=== PATIENT | female | born 1955 | race Caucasian/White ===

== ENCOUNTER 2019-08-29 10:32 | Outpatient (RCR) | payer MEDICARE, SELFPAY | END 2019-11-27 23:59 | disposition home or self-care (01) | LOC: ANHDMC 10:32 | PROVIDERS: PCP Family Medicine; Visit Provider Family Medicine | DX: E11.65 Type 2 diabetes mellitus with hyperglycemia (principal); Z71.89 Other specified counseling | CPT/HCPCS: G0108 ==

== ENCOUNTER → 2019-12-11 09:19 | Outpatient (CLI) | payer MEDICARE, SELFPAY ==
--- NOTE | ~2019-12-11 | US_ITS ---
US soft tissue UE LT 12/11/2019 09:30 Indication: Painful lump left upper extremity Procedure: High-resolution Limited ultrasound of the left upper extremity Comparison: No prior studies for comparison. Findings: There is normal heterogeneous echotexture in the area of palpable concern. No discrete mass identified. Impression: 1: Normal limited soft tissue ultrasound of the left upper extremity in the area of palpable concern. No mass identified. Reviewed, dictated and finalized at location A. LE ASCP CONSULTANT Impression: 1: Normal limited soft tissue ultrasound of the left upper extremity in the are a of palpable concern. No mass identified.
== END ==
PROVIDERS: PCP Family Medicine; Visit Provider Physician Assistant
DX: R22.32 Localized swelling, mass and lump, left upper limb (principal); M79.602 Pain in left arm
CPT/HCPCS: 76882

== ENCOUNTER 2019-12-21 01:33 | Day surgery (SDC) | payer MEDICARE, SELFPAY ==
[2019-12-18 10:09] VITALS: BMI 50.7
[2019-12-21 06:58] VITALS: BP 181/57; PULSE 86; RESP 16; TEMP 36.9; O2SAT 96; BMI 49.5
[2019-12-21] MEDS: LACTATED RINGERS 1,000 ML 150 ML IV CONT (07:17)
[2019-12-21 07:20] LABS: Glucose Point of Care 148 (65-105)
--- NOTE | 2019-12-21 07:26 | WPDANESEPPF ---
Anes - Initial Pre Proc Eval Procedure: Operation Date: 12/21/19 08:00 Proposed Procedures p Screening Colonoscopy - Pedro Pablo Bay MD Date/Time: 12/21/19 07:26 Surgeon: Pedro Pablo Bay MD Pre Op Diagnosis: Neoplasm Screening Patient Data Age: 64 Gender: F Height: 5 ft 4 in Weight: 130.9 kg Last Vital Signs Temp 36.9 C 12/21/19 06:58 Pulse 86 12/21/19 06:58 Resp 16 12/21/19 06:58 BP 181/57 H 12/21/19 06:58 Pulse Ox 96 12/21/19 06:58 Allergies Allergy/AdvReac Type Severity Reaction Status Date / Time Penicillins Allergy Severe Anaphylaxis Verified 12/21/19 06:56 amitriptyline Allergy Unknown Nightmares Verified 12/21/19 06:56 nickel Allergy Unknown SWELL/PAIN Verified 12/21/19 06:56 Sulfa (Sulfonamide Allergy Unknown Hives Verified 12/21/19 06:56 Antibiotics) triamcinolone Allergy Unknown Chest Pain Verified 12/21/19 06:56 Home Medications Medication Instructions Recorded Confirmed Type aspirin 325 mg tablet 325 mg PO DAILY 10/16/19 12/18/19 History celecoxib 200 mg capsule 200 mg PO DAILY 10/16/19 12/18/19 History cetirizine 10 mg tablet 10 mg PO DAILY 10/16/19 12/18/19 History glimepiride 2 mg tablet 2 mg PO QAM 10/16/19 12/18/19 History [id number]-[id number] C-Mn 500 2 cap PO QAM 10/16/19 12/18/19 History mg-400 mg capsule hydrocodone 10 mg-acetaminophen 1 tablet PO Q6H 10/16/19 12/18/19 History 325 mg tablet lisinopril 20 mg tablet 20 mg PO DAILY 10/16/19 12/18/19 History multivitamin 0.5 tablet PO BID 10/16/19 12/18/19 History omega-3 fatty acids 1,000 mg 1,000 mg PO DAILY 10/16/19 12/18/19 History capsule simvastatin 20 mg tablet 20 mg PO DAILY #90 tablet 10/26/19 12/18/19 Rx metformin 2,000 mg PO QACDINNER 12/18/19 12/18/19 History Laboratory Tests 12/21/19 07:15 POC Capillary Glucose 148 mg/dl H mg/dl (65-105) Patient hx anesthesia problems: none Family hx anesthesia problems: none PMFSH Surgical History Surgical History History of arthroscopy TMJ 1988 History of back surgery Spondylolisthesis 2012 History of breast lump removal 1975 History of 1990, 1992 History of knee replacement procedure of right knee 2013,2016 History of total hysterectomy 2009 Hx of exploratory laparotomy 1989 Family History Family History Father Hypertension Family history of diabetes mellitus in first degree relative Family history of coronary artery disease Cerebrovascular accident Acute myocardial infarction Mother Hypertension Family history of diabetes mellitus in first degree relative Other Diabetes mellitus Family history of arthritis Family history of cardiovascular disease Social History Social History Smoking packs per day: 1.5 Smoking cigarettes per day: 30.0 Years smoked: 10 Smoking pack-years: 15.00 Smoking status: Former smoker Tobacco type: cigarettes Second hand tobacco smoke exposure: No Smoking end date: 10/25/88 Alcohol intake: never Substance use: never Substance use type: does not use Gender identity (if verbalized by the patient): Female Anes - Eval Final PreProcedure Day of Procedure 12/21/19 07:26 Patient weight: morbidly obese Heart: regular rate and rhythm Lungs: clear to auscultation Airway: Mallampati scale class II Neurological: alert and oriented Last oral intake: >/= 8 hours ASA classification: III Emergent: no Anesthetic plan: proceed Anesthesia type and monitoring: general GIVS and standard monitoring Informed Consent: The patient's anesthetic plan and its attendant risks and benefits were discussed with the patient/family/POA. Questions were solicited and answers provided to the satisfaction of the patient/family/POA.
--- NOTE | 2019-12-21 07:27 | WPDGICN ---
Assessment and Plan Additional Plan This is a 64-year-old white female patient seen in evaluation at the request of Dr. Hernadez. Patient's current weight appetite bowel movements are normal. She denies any blood in her stools. She denies abdominal pain. She denies weight loss Family history is noncontributory. Past medical history is significant for knee replacement. Diabetes and hypertension Current medications include glimepiride my dad, cetirizine, celecoxib, hydrocortisone, lisinopril, metformin, vitamins insert Patient reports an allergy to sulfa and penicillins. Physical exam reveals her to be alert. Vital signs stable. HEENT exam unremarkable. Lungs are clear to auscultation and percussion. Heart is without murmur or extra sounds. Abdominal exam bowel sounds are present soft nontender with no organomegaly. Digital external rectal exam is normal. Impression 1. Neoplasia screening advised because of her age. Plan is for screening colonoscopy. This report follow separately. GI Consult Note Consult date/time: 12/21/19 07:27 HPI: Nelida Orellana is a 64 year old female [facility] Surgical History Surgical History History of arthroscopy TMJ 1988 History of back surgery Spondylolisthesis 2012 History of breast lump removal 1974 History of 1990, 1992 History of knee replacement procedure of right knee 2013,2016 History of total hysterectomy 2009 Hx of exploratory laparotomy 1989 Family History Family History Father Hypertension Family history of diabetes mellitus in first degree relative Family history of coronary artery disease Cerebrovascular accident Acute myocardial infarction Mother Hypertension Family history of diabetes mellitus in first degree relative Other Diabetes mellitus Family history of arthritis Family history of cardiovascular disease Social History Social History Smoking packs per day: 1.5 Smoking cigarettes per day: 30.0 Years smoked: 10 Smoking pack-years: 15.00 Smoking status: Former smoker Tobacco type: cigarettes Second hand tobacco smoke exposure: No Smoking end date: 10/25/88 Alcohol intake: never Substance use: never Substance use type: does not use Gender identity (if verbalized by the patient): Female Meds Home Medications and Allergies Home Medications Medication Instructions Recorded Confirmed Type aspirin 325 mg tablet 325 mg PO DAILY 10/16/19 12/18/19 History celecoxib 200 mg capsule 200 mg PO DAILY 10/16/19 12/18/19 History cetirizine 10 mg tablet 10 mg PO DAILY 10/16/19 12/18/19 History glimepiride 2 mg tablet 2 mg PO QAM 10/16/19 12/18/19 History fhpxblwzgyk-atayhtemt-dal C-Mn 500 2 cap PO QAM 10/16/19 12/18/19 History mg-400 mg capsule hydrocodone 10 mg-acetaminophen 1 tablet PO Q6H 10/16/19 12/18/19 History 325 mg tablet lisinopril 20 mg tablet 20 mg PO DAILY 10/16/19 12/18/19 History multivitamin 0.5 tablet PO BID 10/16/19 12/18/19 History omega-3 fatty acids 1,000 mg 1,000 mg PO DAILY 10/16/19 12/18/19 History capsule simvastatin 20 mg tablet 20 mg PO DAILY #90 tablet 10/26/19 12/18/19 Rx metformin 2,000 mg PO QACDINNER 12/18/19 12/18/19 History Allergies Allergy/AdvReac Type Severity Reaction Status Date / Time Penicillins Allergy Severe Anaphylaxis Verified 12/21/19 06:56 amitriptyline Allergy Unknown Nightmares Verified 12/21/19 06:56 nickel Allergy Unknown SWELL/PAIN Verified 12/21/19 06:56 Sulfa (Sulfonamide Allergy Unknown Hives Verified 12/21/19 06:56 Antibiotics) triamcinolone Allergy Unknown Chest Pain Verified 12/21/19 06:56 Vital Signs Vital Signs - 24 hr 12/21/19 06:58 Temperature 36.9 C Pulse Rate 86 Respiratory Rate 16 Blood Pressure 181/57 H Pulse Oximetry 96
[2019-12-21 08:11] VITALS: BP 106/56; PULSE 87; RESP 21; O2SAT 99
[2019-12-21 08:21] VITALS: BP 108/53; PULSE 86; RESP 21; O2SAT 98
[2019-12-21 08:31] VITALS: BP 124/56; PULSE 81; RESP 20; O2SAT 98
== END 2019-12-21 08:45 | disposition home or self-care (01) ==
PROVIDERS: PCP Family Medicine; Visit Provider Internal Medicine Gastroenterology
PROC: 0DJD8ZZ Inspection of Lower Intestinal Tract, Via Natural or Artificial Opening Endoscopic (ICD-10-PCS; CPT 45378; principal; 2019-12-21 08:00)
DX: Z12.11 Encounter for screening for malignant neoplasm of colon (principal); K64.8 Other hemorrhoids; I10 Essential (primary) hypertension; E11.9 Type 2 diabetes mellitus without complications; Z87.891 Personal history of nicotine dependence; Z79.82 Long term (current) use of aspirin; Z79.84 Long term (current) use of oral hypoglycemic drugs; Z99.81 Dependence on supplemental oxygen; E66.01 Morbid (severe) obesity due to excess calories; Z68.42 Body mass index [BMI] 45.0-49.9, adult
CPT/HCPCS: 45378; J2704; J7120

== ENCOUNTER 2020-05-13 10:39 | Outpatient (CLI) | payer MEDICARE, SELFPAY ==
--- NOTE | ~2020-05-13 | US_ITS ---
EXAMINATION: US venous doppler LE EXAM DATE: 05/13/2020 11:34 INDICATION: Bilateral leg edema. TECHNIQUE: Multiple grayscale, color flow and Doppler images of the lower extremity deep venous syste ms bilaterally were obtained and reviewed. Comparison is made to prior examination from 07/06/2011. FINDINGS: Right side: The right common femoral, femoral and profunda veins demonstrate normal color flow, respi ratory variation, augmentation and compressibility. Compressibility, color flow confirmed within the right popliteal, posterior tibial, peroneal, and greater saphenous veins. Left side: The left common femoral, femoral and profunda veins demonstrate normal color flow, respira tory variation, augmentation and compressibility. Compressibility, color flow confirmed within the l eft popliteal, posterior tibial, peroneal, and greater saphenous veins. IMPRESSION: 1. No lower extremity deep venous thrombosis bilaterally. Reviewed, dictated and finalized at location A.
== END 2020-05-13 10:40 | disposition home or self-care (01) ==
LOC: ANHIMG 10:44
PROVIDERS: PCP Family Medicine; Visit Provider Physician Assistant
DX: R60.0 Localized edema (principal)
CPT/HCPCS: 93970

== ENCOUNTER 2020-05-18 07:23 | Outpatient (NON) | payer MEDICARE, SELFPAY ==
[2020-05-21 08:27] LABS: SARS-CoV-2 RNA PCR Negative
== END 2020-05-18 07:24 ==
PROVIDERS: PCP Family Medicine; Visit Provider Family Medicine
DX: Z20.828 Contact with and (suspected) exposure to other viral communicable diseases (principal); R05 Cough
CPT/HCPCS: 87635; C9803; U0003

== ENCOUNTER → 2020-09-09 12:00 | Outpatient (CLI) | payer MEDICARE, SELFPAY ==
--- NOTE | ~2020-09-09 | MM_ITS ---
EXAMINATION: MM screening [facility] BI w grey HISTORY: Screening mammogram TECHNIQUE: Craniocaudal and mediolateral oblique 3-D tomosynthesis images were obtained and synthetic 2-D images were generated. CAD analysis was submitted and interpreted. COMPARISON: 07/10/2019, 01/05/2019, 12/08/2018, 04/17/2013 BREAST PARENCHYMAL COMPOSITION: The breasts are heterogeneously dense, which may obscure small masses . FINDINGS: Scattered benign-appearing calcifications are present. There is no evidence of suspicious m ass, calcification, or architectural distortion to suggest malignancy in either breast. There has bee n no suspicious interval change. IMPRESSION: 1. No mammographic evidence of malignancy. 2. Recommend routine screening mammography in one year. BI-RADS Category 2: Benign finding(s). Reviewed, dictated and finalized at location A. DISTRIBUTION SYSTEM OPERATOR
== END ==
PROVIDERS: Visit Provider Family Medicine
DX: Z12.31 Encounter for screening mammogram for malignant neoplasm of breast (principal)
CPT/HCPCS: 77063; 77067

== ENCOUNTER → 2020-10-02 09:01 | Outpatient (CLI) | payer MEDICARE, SELFPAY ==
--- NOTE | ~2020-10-02 | US_ITS ---
Please refer to diagnostic mammogram report dated 10/02/2020 for details. Reviewed, dictated and finalized at location A. ALTERATIONS TAILOR
--- NOTE | ~2020-10-02 | MM_ITS ---
EXAMINATION: MM diagnostic mammo unilat RT HISTORY: Palpable right breast abnormality with pain TECHNIQUE: Additional 3-D tomosynthesis images of the right breast were performed and synthetic 2-D i mages were generated. CAD analysis was submitted and interpreted. High resolution right breast ultras ound was performed. COMPARISON: Comparison to multiple prior studies sequentially, with oldest reviewed study dated 04/17. BREAST PARENCHYMAL COMPOSITION: Breast composed of scattered areas of fibroglandular density. FINDINGS: MAMMOGRAPHIC FINDINGS: There are no suspicious masses, calcifications or architectural distortion to suggest malignancy. No asymmetry laterally in the right breast on CC view is unchanged from prior studies. There are benign right breast calcifications. ULTRASOUND: Targeted left breast ultrasound: In the area of palpable abnormality at 9:00, 10.5 cm from the nipple , there is a lymph node measuring 1.7 x 0.9 x 1.4 cm. There is normal fatty hilum. No other discrete masses are identified. IMPRESSION: 1. Normal-appearing lymph node measuring up to 1.7 cm corresponds to the area of palpable abnormality . No evidence for malignancy. 2. Routine yearly screening mammogram and regular clinical breast examination are recommended. BI-RADS Category 2: Benign finding(s). Reviewed, dictated and finalized at location A. CUTTER IMPRESSION: 1. Normal-appearing lymph node measuring up to 1.7 cm corresponds to the area o f palpable abnormality. No evidence for malignancy. 2. Routine yearly screening mammogram and regular clinical breast examination a re recommended. BI-RADS Category 2: Benign finding(s).
== END ==
PROVIDERS: PCP Family Medicine; Visit Provider Nurse Practitioner Family
DX: N63.13 Unspecified lump in the right breast, lower outer quadrant (principal)
CPT/HCPCS: 76642; 77065

== ENCOUNTER 2020-11-21 06:54 | Outpatient (NON) | payer MEDICARE, SELFPAY ==
[2020-11-21 16:56] LABS: SARS-CoV-2 RNA PCR Positive
== END 2020-11-21 06:55 ==
LOC: ANHCOVIDDT 07:07
PROVIDERS: Family Provider Family Medicine; PCP Family Medicine; Visit Provider Nurse Practitioner Family
DX: U07.1 COVID-19 (principal); R05 Cough
CPT/HCPCS: C9803; U0003; U0005

== ENCOUNTER 2022-03-04 12:57 | Outpatient (CLI) | payer MEDICARE, SELFPAY ==
--- NOTE | ~2022-03-04 | XR_ITS ---
EXAM: XR hip BI 2V w AP pelvis HISTORY: M25.551,low back pain into hips,worse yesterday.fusion 2011 COMPARISON: None available FINDINGS: Normal mineralization. Mild degenerative change at the SI joints. Moderate degenerative ch lianne at the pubic symphysis. Mild bilateral superior hip joint space narrowing. Scattered enthesopath y. No fracture or dislocation. IMPRESSION: Mild bilateral hip osteoarthritis. Osteitis pubis. Reviewed, dictated and finalized at location K.
--- NOTE | ~2022-03-04 | XR_ITS ---
XR lumbar spine min 4V DATE: 03/04/2022 13:45 INDICATION: Low back pain radiating to hips, worse yesterday. TECHNIQUE: AP, lateral, bilateral oblique views, coned lateral lumbosacral view COMPARISON: 04/04/2019 lumbar spine FINDINGS: Bilateral pedicle screws and rods at L4-5 and interbody spinal fusion. There is grade 1 ant erolisthesis at L4-5. No fracture or bone destruction is evident. The lumbar pedicles are intact. There is minimal degenera tive change of the lumbar spine. The sacroiliac joints are intact, with mild degenerative change. Abdominal aortic calcification, without apparent aneurysm. IMPRESSION: Status post posterior and interbody spinal fusion at L4-5 Grade 1 anterolisthesis at L4-5 No significant change since 04/04/2019 Reviewed, dictated and finalized at location B.
== END 2022-03-04 12:58 | disposition home or self-care (01) ==
PROVIDERS: PCP Family Medicine; Visit Provider Physician Assistant
DX: M25.551 Pain in right hip (principal); M54.50 Low back pain, unspecified; M16.0 Bilateral primary osteoarthritis of hip; M86.8X8 Other osteomyelitis, other site; Z98.1 Arthrodesis status; M43.16 Spondylolisthesis, lumbar region
CPT/HCPCS: 72110; 73521

== ENCOUNTER → 2022-07-09 15:15 | Outpatient (CLI) | payer MEDICARE, SELFPAY ==
--- NOTE | ~2022-07-09 | MM_ITS ---
EXAMINATION: MM screening [facility] BI w grey HISTORY: Screening mammogram TECHNIQUE: Craniocaudal and mediolateral oblique 3-D tomosynthesis images were obtained and synthetic 2-D images were generated. CAD analysis was submitted and interpreted. COMPARISON: 10/02/2020 diagnostic right mammogram and limited right breast ultrasound examination 09/09/2020 bilateral screening mammogram examination 08/22/2019 complete right breast ultrasound 07/10/2019 diagnostic right mammogram and complete right breast ultrasound 01/05/2019 bilateral diagnostic mammogram and complete bilateral breast ultrasound bilateral screening mammogram BREAST PARENCHYMAL COMPOSITION: The breasts are heterogeneously dense, which may obscure small masses . FINDINGS: Scattered bilateral punctate benign-appearing microcalcifications. There is no evidence of suspicious mass, calcification, or architectural distortion to suggest malignancy in either breast. T here has been no suspicious interval change. IMPRESSION: 1. No mammographic evidence of malignancy. 2. Recommend routine screening mammography in one year. BI-RADS Category 2: Benign finding(s). Reviewed, dictated and finalized at location A.
== END ==
PROVIDERS: PCP Family Medicine; Visit Provider Family Medicine
DX: Z12.31 Encounter for screening mammogram for malignant neoplasm of breast (principal)
CPT/HCPCS: 77063; 77067

== ENCOUNTER 2022-12-24 09:50 | Outpatient (CLI) | payer MEDICARE, SELFPAY ==
[2022-12-24 11:09] LABS: Influenza A QL RT-PCR Negative (Negative); Influenza B QL RT-PCR Negative (Negative); SARS-CoV-2 RNA PCR Negative
== END 2022-12-24 09:51 | disposition home or self-care (01) ==
LOC: ANHLAB 09:51
PROVIDERS: PCP Family Medicine; Visit Provider Physician Assistant
DX: R05.9 Cough, unspecified (principal); Z20.822 Contact with and (suspected) exposure to COVID-19
CPT/HCPCS: 87636

== ENCOUNTER → 2023-04-13 10:15 | Outpatient (CLI) | payer MEDICARE, SELFPAY ==
--- NOTE | ~2023-04-13 | CT_ITS ---
CT scan of the Neck Technique: 2.5 mm axial scans were obtained through the neck after intravenous administration of 75 c c Omnipaque 350. Coronal and sagittal reconstructions of the neck were obtained. Dose reduction techn ique was used on this scan by utilizing automated exposure control and iterative reconstruction techn ique. The dose-length product (DLP) was 407.89 mGy-cm. Clinical History: Chronic pharyngitis Findings: There is no evidence of any significant cervical lymphadenopathy. Several small, nonenlarged jugulo- digastric and posterior cervical lymph nodes are noted bilaterally. Parapharyngeal spaces appear norm al bilaterally. The parotid and submandibular glands appear normal. The pharyngeal mucosal spaces appear normal. No soft tissue masses are seen in the neck. The thyroid gland appears normal. Images of the lung apices reveal no abnormalities. Impression: No significant abnormalities noted. Reviewed, dictated and finalized at [facility]. Impression: No significant abnormalities noted.
[2023-04-13 10:55] LABS: Estimated Glomerular Filt Rate > 60
== END ==
PROVIDERS: PCP Family Medicine; Visit Provider Otolaryngology
DX: J31.2 Chronic pharyngitis (principal)
CPT/HCPCS: 70491; Q9967

== ENCOUNTER 2023-05-11 09:49 | Outpatient (CLI) | payer MEDICARE, SELFPAY ==
--- NOTE | ~2023-05-11 | DEXA_ITS ---
Bone Density Report Name: TIMOTHY BENTLEY Age: 67 Sex: Female Ethnicity: White Date of : 1955 Indication: postmenopausal; screening for osteoporosis; hysterectomy; Referring Provider: JEET BLAKELY Study: Bone densitometry was performed. Exam Date: May 11, 2023 Accession number: [id number] Bone Density: Region BMD T-score Z-score Classification AP Spine(L1, L2) 1.079 0.9 2.7 Normal Femoral Neck (Left) 0.879 0.3 1.9 Normal Total Hip (Left) 1.223 2.3 3.7 Normal Femoral Neck (Right) 1.032 1.6 3.3 Normal Total Hip (Right) 1.211 2.2 3.6 Normal Total Hip Mean 1.217 2.3 3.7 Normal World Health Organization criteria for BMD impression classify patients as: Normal (T-score at or above -1.0), Osteopenia (T-score between -1.0 and -2.5), or Osteoporosis (T-score at or below -2.5). 10-year Fracture Risk: FRAX not reported because: All T-scores for Spine Total, Hip Total, Femoral Neck at or above -1.0 Clinical Information Provided by Patient: Has the following medical conditions: Hysterectomy Patient maximum height was 64 Menopause Age: 40 No regular weight bearing exercise Onset of menses at age 12 Number of children 2 Missed period for more than 6 months in a row Impression: The patient has normal bone mass. Discussion: BONE DENSITY IS ABOVE THE MINIMUM DESIRABLE LEVEL AT ALL SKELETAL SITES TESTED. This patient?s bone mineral density is above the minimum desirable level (T-score -1.0 or better) at all sites measured. The patient should follow a healthful lifestyle (good nutrition with adequate calcium and vitamin D, and appropriate weight-bearing exercise). Follow-Up: Consider repeating this study in 5 years or sooner if there is some new clinical indication. Reported by: RICKY on 05/11/2023 10:35:00 AM. Reviewed, dictated and finalized at location AAndrew ORDONEZ
== END 2023-05-11 09:50 | disposition home or self-care (01) ==
PROVIDERS: PCP Family Medicine; Visit Provider Family Medicine
DX: Z78.0 Asymptomatic menopausal state (principal)
CPT/HCPCS: 77080

== ENCOUNTER 2025-05-08 11:58 | Outpatient (RCR) | payer MEDICARE, SELFPAY ==
[2025-05-08 12:32] VITALS: BMI 45.6
--- NOTE | 2025-05-21 11:57 | PCWOUND ---
WOCN NOTE Patient called and left voicemail to cancel her appointment for tomorrow 05/22/25. States wound to abdomen is closed with a purple scar. No follow up planned at this time.
== END 2025-06-18 10:43 | disposition home or self-care (01) ==
LOC: ANHWOC 11:58
PROVIDERS: PCP Family Medicine
DX: E11.65 Type 2 diabetes mellitus with hyperglycemia (principal)
CPT/HCPCS: 99213; G0463

== ENCOUNTER 2025-09-19 15:20 | Outpatient (CLI) | payer MEDICARE, SELFPAY ==
--- NOTE | ~2025-09-19 | MM_ITS ---
EXAMINATION: MM screening [facility] BI w grey HISTORY: Screening. TECHNIQUE: Craniocaudal and mediolateral oblique 3-D tomosynthesis images were obtained and synthetic 2-D images were generated. CAD analysis was submitted and interpreted. COMPARISON: None available. BREAST PARENCHYMAL COMPOSITION: 2021 and 2019 FINDINGS: There are multiple, bilateral, circumscribed nodules/masses, a benign finding. No suspicious masses are seen. There are no suspicious calcifications. No unexplained architectural distortion is seen. There are no skin or nipple abnormalities identified. There is no adenopathy seen on the images submitted. IMPRESSION: No mammographic evidence to suggest malignancy is seen. The patient may return to screening mammography as per ACR guidelines. BI-RADS: 2 - Benign. Reviewed, dictated and finalized at location B. DYER
== END 2025-09-19 15:21 | disposition home or self-care (01) ==
LOC: MICIMG 15:24
PROVIDERS: PCP Family Medicine; Visit Provider Family Medicine
DX: Z12.31 Encounter for screening mammogram for malignant neoplasm of breast (principal)
CPT/HCPCS: 77063; 77067